=== PATIENT | male | born 1975 | race Caucasian/White ===

== ENCOUNTER 2016-12-03 13:54 | Emergency (ER) | payer SELFPAY ==
[~2016-12-03] VITALS: Ht 190.5 cm; Wt 93.0 kg
[~2016-12-03 13:54] MED LIST: DICL50TA2 PO; METH750T2 PO
[2016-12-03 13:59] VITALS: BP 120/80; PULSE 88; RESP 16; TEMP 97.9; O2SAT 100
--- NOTE | 2016-12-03 14:38 | PD ---
Physical Exam Date Seen by Provider: December 03, 2016 Time Seen by Provider: 14:36 Narrative 41 yo male here via [facility] for evaluation of back pain. history of back pain. Pain more severe today. Pain is 10/10. Hurts to sit. Has not had any issues for a couple of years. No injury. No numbness, tingling, weakness. Standing is better. Started this am. No urinary or BM issues. Vitals sign stable. Patient awaiting bed placement. Data Data Last Documented VS Vital Signs Date Time Temp Pulse Resp B/P Pulse Ox O2 Delivery O2 Flow Rate FiO2 12/03/16 13:59 97.9 88 16 120/80 100 MDM Medical Record Reviewed: Yes Supervised Visit with FRANK: No Dilip Wei December 03, 2016 14:38
--- NOTE | 2016-12-03 14:54 | PD ---
HPI Chief Complaint: Back/ Neck Pain or Injury Time Seen by Provider: 14:52 Travel History International Travel<30 days: No Contact w/Intl Traveler<30days: No Traveled to known affect area: No History of Present Illness HPI Patient is a 41-year-old male presenting to emergency evaluation of low back pain. Patient states he picked up the child out of a car this morning and since that time he's had significant low back pain that radiates down his right leg. He has a history of sciatica as well as low back pain, he states the last time it happened he was in correction and he was given some form of steroid injection and pain medication. He denies any numbness or tingling or weakness in his lower extremities. He denies any saddle paresthesia, no incontinence of his bladder or bowel. He does report the pain to be a 10 out of 10 and aching, shooting. PFSH Past Medical History Diminished Hearing: No Musculoskeletal: Yes (sciatica) Social History Alcohol Use: Yes (OCC) Tobacco Use: Yes (1 PPD) Substance Use: Yes (SMOKES POT) Allergies-Medications (Allergen,Severity, Reaction): Coded Allergies: No Known Allergies (Verified , 12/03/16) Reported Meds & Prescriptions Reported Meds & Active Scripts Active Robaxin (Methocarbamol) 750 Mg Tab 750 Mg PO TID PRN Diclofenac Potassium 50 mg (Diclofenac Potassium) 50 Mg Tab 1 Tab PO Q8 PRN Review of Systems Except as stated in HPI: all other systems reviewed are Neg Musculoskeletal: Positive: Myalgias, Cramping, Pain Physical Exam Narrative GENERAL: Well-nourished, well-developed patient. Appears uncomfortable SKIN: Focused skin assessment warm/dry. HEAD: Normocephalic. EYES: No scleral icterus. No injection or drainage. NECK: Supple, trachea midline. No JVD or lymphadenopathy. CARDIOVASCULAR: Regular rate and rhythm without murmurs, gallops, or rubs. RESPIRATORY: Breath sounds equal bilaterally. No accessory muscle use. GASTROINTESTINAL: Abdomen soft, non-tender, nondistended. MUSCULOSKELETAL: No cyanosis, or edema. Tenderness to palpation paraspinal musculature in the lumbar region. 5/5 muscle strength in bilateral lower extremities. Patient is neurovascularly intact. BACK: Nontender without obvious deformity. No CVA tenderness. Data Data Last Documented VS Vital Signs Date Time Temp Pulse Resp B/P Pulse Ox O2 Delivery O2 Flow Rate FiO2 12/03/16 13:59 97.9 88 16 120/80 100 Orders Ketorolac Inj (Toradol Inj) (12/03/16 15:00) Orphenadrine Inj (Norflex Inj) (12/03/16 15:00) Dexamethasone Inj (Decadron Inj) (12/03/16 15:00) Oxycodone-Acetamin 5-325 Mg (Percocet (12/03/16 16:30) MDM Medical Decision Making Medical Screen Exam Complete: Yes Emergency Medical Condition: Yes Interpretation(s) Vital Signs Date Time Temp Pulse Resp B/P Pulse Ox O2 Delivery O2 Flow Rate FiO2 12/03/16 13:59 97.9 88 16 120/80 100 Differential Diagnosis Sprain versus strain versus spasm versus discogenic pain versus other Narrative Course Patient is a 41-year-old male presenting to the emergency department for evaluation of low back pain that started approximately 4 hours prior to arrival after lifting a child out of a car. Patient is neurologically and neurovascularly intact. He does appear to be uncomfortable. He'll be given Toradol, Norflex, dexamethasone now. Will reassess. 1620-patient reassessed, he is still having a fair amount of tightness and pain in his lower back. Percocet 5 mg by mouth 1 dose ordered. 1710 patient is moving around better in the room. He is able to sit up on his own, and reports improvement in the pain. Patient was encouraged to avoid bed rest, continue range of motion exercises, apply warm moist heat. He was encouraged to follow-up with his primary doctor and take medications as prescribed. He was advised to return to emergency department for any new or worsening symptoms. Patient verbalizes understanding of these instructions. Patient is stable for discharge. Diagnosis Primary Impression: Strain of lumbar paraspinal muscle Qualified Code: S39.012A - Strain of lumbar paraspinal muscle, initial encounter Additional Impressions: Spasm of lumbar paraspinous muscle Sciatica Qualified Code: M54.31 - Sciatica of right side Referrals: [facility] Primary Care Physician Patient Instructions: General Instructions, Muscle Spasm (ED), Muscle Strain ( ED), Sciatica (ED) Additional Instructions: Follow-up with a primary doctor or at the [facility] Take medications as directed Apply warm moist heat to affected area, continue range of motion exercises, avoid exacerbating activities, avoid bed rest Return to emergency department for any new or worsening symptoms Med/Other Pt SpecificInfo: Prescription(s) given Scripts Prednisone 50 Mg Tab50 Mg PO DAILY #5 TAB Ref 0 Prov:Domi Tovar 12/03/16 Cyclobenzaprine (Flexeril)10 Mg Tab10 Mg PO TID PRN (MUSCLE SPASM) 10 Days Ref 0 Prov:Domi Tovar 12/03/16 Ibuprofen 800 Mg [id number] Mg PO Q6HR PRN (PAIN) #40 TAB Ref 0 Prov:Domi Tovar 12/03/16 Disposition: 01 DISCHARGE HOME Condition: Stable Domi Tovar December 03, 2016 14:54
[2016-12-03] MEDS ORDERED: KETOROLAC TROMETHAMINE 60 MG/2 ML (IM) VIAL IM ONE (15:00)
[2016-12-03] MEDS ORDERED: DEXAMETHASONE SOD PHOS 20 MG/5 ML VIAL IM ONE (15:00)
[2016-12-03] MEDS ORDERED: ORPHENADRINE INJ 60 MG/2 ML AMP IM ONE (15:00)
[2016-12-03] MEDS ORDERED: oxyCODONE/ACETAMINOPHEN 5 MG/325 MG TAB PO ONE (16:30)
[2016-12-03] MEDS ORDERED: PRED50 PO (17:10)
[2016-12-03] MEDS ORDERED: IBUP800T23 PO (17:10)
[2016-12-03] MEDS ORDERED: CYCL1TAB29 PO (17:10)
== END 2016-12-03 18:00 | disposition home or self-care (01) ==
LOC: NEPK 13:54
DX: S39.012A Strain of muscle, fascia and tendon of lower back, initial encounter (principal); M62.830 Muscle spasm of back; M54.31 Sciatica, right side; F17.200 Nicotine dependence, unspecified, uncomplicated; Z87.39 Personal history of other diseases of the musculoskeletal system and connective tissue; X50.0XXA Overexertion from strenuous movement or load, initial encounter; Y93.F2 Activity, caregiving, lifting
CPT/HCPCS: 96372; 99284; J1100; J1885; J2360

== ENCOUNTER 2016-12-17 09:58 | Emergency (ER) | payer SELFPAY ==
[~2016-12-17 09:58] MED LIST changes: +CYCL1TAB29 PO; +IBUP800T23 PO; +PRED50 PO
[2016-12-17 10:01] VITALS: BP 136/85; PULSE 88; RESP 18; TEMP 97.7; O2SAT 96
--- NOTE | 2016-12-17 10:19 | PD ---
HPI Chief Complaint: Back/ Neck Pain or Injury Time Seen by Provider: 10:19 Travel History International Travel<30 days: No Contact w/Intl Traveler<30days: No Traveled to known affect area: No History of Present Illness HPI 41-year-old male came to the emergency room with history of sciatica pain. Patient has had this kind of back pain in the past. He says this time it has been going on since November 27. Patient was here on the and had got a steroid shot and says that did not help with the pain. Today he has been unable to get out of the bed because of it. Laying on his right side on the elbow helps him. He looks uncomfortable. Says walking hurts a lot. Vital signs otherwise stable. In the past he has received cortisone shot in the back which has relieved his pain. He was expecting a cortisone shot in the back when he came in. No history of bowel or bladder incontinence. [facility] Past Medical History Narrative Medical List of his past medical, surgical, social and family history was reviewed from the nursing note. Medical History: Denies Significant Hx Diminished Hearing: No Musculoskeletal: Yes (sciatica) Social History Alcohol Use: No Tobacco Use: Yes Substance Use: No Allergies-Medications (Allergen,Severity, Reaction): Coded Allergies: No Known Allergies (Verified , 12/17/16) Comments No known drug allergies. Reported Meds & Prescriptions Reported Meds & Active Scripts Active No Active Prescriptions or Reported Medications Narrative Medication List of his home medications reviewed from the nursing note. Review of Systems Except as stated in HPI: all other systems reviewed are Neg Physical Exam Narrative GENERAL: Awake, alert, anxious, moderate distress SKIN: Focused skin assessment warm/dry. HEAD: Atraumatic. Normocephalic. EYES: Pupils equal and round. No scleral icterus. No injection or drainage. ENT: No nasal bleeding or discharge. Mucous membranes pink and moist. NECK: Trachea midline. No JVD. CARDIOVASCULAR: Regular rate and rhythm. No murmur appreciated. RESPIRATORY: No accessory muscle use. Clear to auscultation. Breath sounds equal bilaterally. GASTROINTESTINAL: Abdomen soft, non-tender, nondistended. Hepatic and splenic margins not palpable. MUSCULOSKELETAL: No obvious deformities. No clubbing. No cyanosis. No edema. Paraspinal muscle spasm NEUROLOGICAL: Awake and alert. No obvious cranial nerve deficits. Motor grossly within normal limits. Normal speech. PSYCHIATRIC: Appropriate mood and affect; insight and judgment normal. Data Data Last Documented VS Vital Signs Date Time Temp Pulse Resp B/P Pulse Ox O2 Delivery O2 Flow Rate FiO2 12/17/16 11:13 16 12/17/16 10:01 97.7 88 136/85 96 Orders Hydromorphone Pf Inj (Dilaudid Pf Inj) (12/17/16 10:30) Ketorolac Inj (Toradol Inj) (12/17/16 10:30) Orphenadrine Inj (Norflex Inj) (12/17/16 10:30) MDM Medical Decision Making Medical Screen Exam Complete: Yes Emergency Medical Condition: Yes Medical Record Reviewed: Yes Differential Diagnosis Lumbar radiculopathy, muscular skeletal pain Narrative Course 11:47 AM patient was given a combination of IM Dilaudid, Norflex and Toradol. Patient says he is feeling better and would like to go home at this point. He has medication prescription from last time and would fill those. I am comfortable discharging him. He has his friend will drive him home. Procedures EKG Prior to Arrival: No Diagnosis Primary Impression: Lumbar radiculopathy Referrals: Primary Care Physician Additional Instructions: Please return to the ER if the condition worsens or any other new concerns. He should not be lifting heavy weight. Bedrest especially on firm surface. Follow -up with your primary care in couple days. Med/Other Pt SpecificInfo: No Change to Meds Scripts No Active Prescriptions or Reported Meds Disposition: 01 DISCHARGE HOME Condition: Stable Shena Larsen MD Dec 17, 2016 10:19 Shena Larsen MD Dec 17, 2016 10:19
[2016-12-17] MEDS ORDERED: HYDROmorphone HCL PF 1 MG/ML VIAL IM ONE (10:30)
[2016-12-17] MEDS ORDERED: ORPHENADRINE INJ 60 MG/2 ML AMP IM ONE (10:30)
[2016-12-17] MEDS ORDERED: KETOROLAC TROMETHAMINE 60 MG/2 ML (IM) VIAL IM ONE (10:30)
[2016-12-17 11:13] VITALS: RESP 16
== END 2016-12-17 11:55 | disposition home or self-care (01) ==
LOC: NEPD 09:58
DX: M54.16 Radiculopathy, lumbar region (principal); Z72.0 Tobacco use; Z87.39 Personal history of other diseases of the musculoskeletal system and connective tissue
CPT/HCPCS: 96372; 99284; J1170; J1885; J2360